=== PATIENT | male | born 1995 | race Caucasian/White ===

== ENCOUNTER 2018-05-28 06:53 | Inpatient (IN) | payer MEDICAID, OTHER ==
[2018-05-28 07:35] LABS: ADD MAN DIFF? NO
[2018-05-28 07:37] LABS: WHITE BLOOD COUNT 15.5 10^3/ul (4.8-10.8)
[2018-05-28 07:37] LABS: BASOPHIL # 0.1 10^3/ul (0.0-0.1); BASOPHILS % 0.6 % (0.0-2.0); EOSINOPHILS # 1.1 10^3/ul (0.0-0.5); EOSINOPHILS % 6.9 % (0.0-7.0); HEMATOCRIT 33.4 % (42.0-52.0); HEMOGLOBIN 10.1 g/dl (14.0-18.0); LYMPHOCYTES # 2.3 10^3/ul (0.8-2.9); LYMPHOCYTES % 14.7 % (18.0-55.0); MEAN CORPUSCULAR HEMOGLOBIN 28.5 pg (29.0-33.0); MEAN CORPUSCULAR HGB CONC 30.2 g/dl (32.0-37.0); MEAN CORPUSCULAR VOLUME 94.1 fl (72.0-104.0); MEAN PLATELET VOLUME 10.6 fl (7.4-10.4); MONOCYTES % 6.5 % (0.0-13.0); NEUTROPHIL # 10.9 10^3/ul (1.6-7.5); NEUTROPHILS % 70.5 % (30.0-74.0); PLATELET COUNT 644 10^3/UL (140-415); RED BLOOD COUNT 3.55 10^6/ul (4.70-6.10); RED CELL DISTRIBUTION WIDTH 14.4 % (11.5-14.5)
[2018-05-28] MEDS: ACETAMINOPHEN 325 MG SUPP PR (07:50)
[2018-05-28] MEDS: SODIUM CHLORIDE 0.9% 500 ML BAG IV* (07:51)
[2018-05-28 07:57] LABS: ALANINE AMINOTRANSFERASE 55 IU/L (13-69); ALBUMIN 4.6 g/dl (3.3-4.9); ALBUMIN/GLOBULIN RATIO 1.15; ALKALINE PHOSPHATASE 163 IU/L (42-121); ANION GAP 16 (5-13); BILIRUBIN,INDIRECT 0.3 mg/dl (0-1.1); BILIRUBIN,TOTAL 0.3 mg/dl (0.2-1.3); BLOOD UREA NITROGEN 18 mg/dl (7-20); CALCIUM 10.5 mg/dl (8.4-10.2); CARBON DIOXIDE 27 mmol/L (21-31); CHLORIDE 105 mmol/L (97-110); CREATININE 0.21 mg/dl (0.61-1.24); Estimated GFR > 60 mL/min (>60); GLUCOSE 173 mg/dl (70-220); POTASSIUM 4.6 mmol/L (3.5-5.1); SODIUM 148 mmol/L (135-144); TOTAL PROTEIN 8.6 g/dl (6.1-8.1)
[2018-05-28 07:58] LABS: ASPARTATE AMINO TRANSFERASE 84 IU/L (15-46)
[2018-05-28 08:10] LABS: AADO2 Arterial 126.5 mmHg (7.0-24.0); Allen Test ACCEPTAB; Arterial Base Excess 1.4 mmol/L (-3.0-3); Arterial Blood Gas Oxygen Sat 93.6 mmHG (95.0-98.0); Arterial COHb 0.6 % (0.0-3.0); Arterial Fraction of Oxyhgb 92.8 % (93.0-99.0); Arterial HCO3 26.7 mmol/L (22.0-26.0); Arterial MetHb 0.3 % (0.0-1.5); Arterial pCO2 45.1 mmhg (35-45); MODE VENT - PC; Site Right Radial
[2018-05-28 08:25] LABS: LACTIC ACID 2.4 mmol/L (0.5-2.0)
[2018-05-28] MEDS: SODIUM CHLORIDE 0.9% 1L BAG IV* (09:24)
[2018-05-28] MEDS: CEFEPIME 2GM/50 ML (PMX) 50 ML IVPB (09:24)
[2018-05-28 09:29] LABS: ADD UMIC YES; UR ASCORBIC ACID 40 mg/dL (NEGATIVE); UR BACTERIA FEW /HPF (NONE SEEN); UR BILIRUBIN (Dip) NEGATIVE (NEGATIVE); UR BLOOD (Dip) NEGATIVE (NEGATIVE); UR CALCIUM OXALATE CRYSTAL FEW /HPF (NONE SEEN); UR CLARITY CLOUDY (CLEAR); UR COLOR YELLOW (YELLOW); UR GLUCOSE (Dip) NEGATIVE (NEGATIVE); UR KETONES (Dip) NEGATIVE (NEGATIVE); UR LEUKOCYTE ESTERASE (Dip) TRACE Leu/ul (NEGATIVE); UR MUCUS MODERATE /HPF (NONE SEEN); UR NITRITE (Dip) NEGATIVE (NEGATIVE); UR RBC 111 /HPF (0-5); UR SPECIFIC GRAVITY (Dip) 1.027 (1.003-1.030); UR TOTAL PROTEIN (Dip) 2+ mg/dl (NEGATIVE); UR UROBILINOGEN (Dip) NEGATIVE (NEGATIVE); UR WBC 93 /HPF (0-5)
[2018-05-28] MEDS: VANCOMYCIN 1 GM (PMX) 250 ML IVPB (09:52)
[2018-05-28 09:53] LABS: LACTIC ACID 2.4 mmol/L (0.5-2.0)
[2018-05-28] MEDS: LIDOCAINE 1% (MPF) 5 ML VIAL SC (11:30)
[2018-05-28] MEDS ORDERED: SOD CHLORIDE 0.9% 1,000 ML IV (11:32)
[2018-05-28 11:48] LABS: LACTIC ACID 2.4 mmol/L (0.5-2.0)
[2018-05-28] MEDS ORDERED: ACETAMINOPHEN 325 MG TAB PO (12:00)
[2018-05-28] MEDS ORDERED: ONDANSETRON 4 MG INJ IV ×2 (12:00→14:30)
[2018-05-28] MEDS ORDERED: NACL 0.9% 3 ML SYG IV (14:30)
[2018-05-28] MEDS ORDERED: VANCOMYCIN IV PER PHARMACY XX (15:00)
[2018-05-28] MEDS ORDERED: BACLOFEN 10 MG TAB GTB (15:30)
[2018-05-28] MEDS ORDERED: LEVALBUTEROL (NEB) 0.31 MG/3 ML AMP NEB (15:30)
[2018-05-28] MEDS ORDERED: ACETAMINOPHEN 160 MG/5ML CUP PO (15:30)
[2018-05-28] MEDS ORDERED: DEXTROSE 50% 50 ML SYRINGE IV ×2 (16:00)
[2018-05-28] MEDS ORDERED: GLUCOSE GEL 15 GRAM TUBE PO ×2 (16:00)
[2018-05-28] MEDS ORDERED: GLUCAGON 1 MG INJ IM (16:00)
[2018-05-28] MEDS ORDERED: GLUCOSE GEL 15 GRAM TUBE BUCCAL (16:00)
[2018-05-28] MEDS ORDERED: GENTAMICIN IV PER PHARMACY XX (17:00)
[2018-05-28] MEDS: INSULIN ASPART [NOVOLOG] 3 ML PEN SC ×2 (18:00→20:27)
[2018-05-28] MEDS: VANCOMYCIN 750 MG (PMX) 250 ML IVPB (18:52)
[2018-05-28] MEDS: SPIRONOLACTONE 25 MG TAB GTB (19:39)
[2018-05-28] MEDS: MONTELUKAST 10 MG TAB GTB (20:03)
[2018-05-28] MEDS: LEVETIRACETAM (100 MG/ML) 5ML CUP GTB (20:03)
[2018-05-28] MEDS: METOPROLOL 25 MG TAB GTB (20:03)
[2018-05-28] MEDS: TOPIRAMATE SPRINKLE 25 MG CAP GTB (20:03)
[2018-05-28] MEDS: HEPARIN 5,000 UNIT/1 ML VIAL SC (20:25)
[2018-05-28] MEDS: GENTAMICIN 80 MG/NS (PMX) 50 ML IVPB (20:27)
[2018-05-28] MEDS ORDERED: TRIMETHOPRIM/SULFAMETHOX (PO SYG) GTB (21:00)
[2018-05-28] MEDS ORDERED: CEFEPIME 1GM/50 ML (PMX) 50 ML IVPB (21:00)
[2018-05-29] MEDS: ACCU-CHEK XX (01:01)
[2018-05-29] MEDS: VANCOMYCIN 750 MG (PMX) 250 ML IVPB ×3 (01:11→17:20)
[2018-05-29] MEDS: SPIRONOLACTONE 25 MG TAB GTB ×2 (05:09→17:07)
[2018-05-29] MEDS: GENTAMICIN 80 MG/NS (PMX) 50 ML IVPB ×2 (05:14→18:00)
[2018-05-29 07:02] LABS: ALANINE AMINOTRANSFERASE 43 IU/L (13-69); ALBUMIN 3.6 g/dl (3.3-4.9); ALBUMIN/GLOBULIN RATIO 1.24; ALKALINE PHOSPHATASE 99 IU/L (42-121); ANION GAP 13 (5-13); ASPARTATE AMINO TRANSFERASE 78 IU/L (15-46); BILIRUBIN,INDIRECT 0.2 mg/dl (0-1.1); BILIRUBIN,TOTAL 0.2 mg/dl (0.2-1.3); BLOOD UREA NITROGEN 10 mg/dl (7-20); CALCIUM 9.2 mg/dl (8.4-10.2); CARBON DIOXIDE 23 mmol/L (21-31); CHLORIDE 112 mmol/L (97-110); CREATININE 0.17 mg/dl (0.61-1.24); Estimated GFR > 60 mL/min (>60); GLUCOSE 120 mg/dl (70-220); MAGNESIUM 1.9 mg/dl (1.7-2.5); PHOSPHORUS 3.4 mg/dl (2.5-4.9); POTASSIUM 3.8 mmol/L (3.5-5.1); SODIUM 148 mmol/L (135-144); TOTAL PROTEIN 6.5 g/dl (6.1-8.1)
[2018-05-29 08:00] LABS: HEMOGLOBIN A1C 5.3 % (0-5.9)
[2018-05-29] MEDS: INSULIN ASPART [NOVOLOG] 3 ML PEN SC ×4 (08:00→21:00)
[2018-05-29 08:39] LABS: AADO2 Arterial 41.4 mmHg (7.0-24.0); Allen Test ACCEPTAB; Arterial Base Excess 1.3 mmol/L (-3.0-3); Arterial Blood Gas Oxygen Sat 98.1 mmHG (95.0-98.0); Arterial COHb 0.3 % (0.0-3.0); Arterial Fraction of Oxyhgb 97.2 % (93.0-99.0); Arterial HCO3 26.2 mmol/L (22.0-26.0); Arterial MetHb 0.6 % (0.0-1.5); Arterial pCO2 42.9 mmhg (35-45); MODE VENT - AC; Site Right Radial
[2018-05-29 08:41] LABS: WHITE BLOOD COUNT 10.5 10^3/ul (4.8-10.8)
[2018-05-29 08:41] LABS: HEMATOCRIT 27.4 % (42.0-52.0); HEMOGLOBIN 8.5 g/dl (14.0-18.0); MEAN CORPUSCULAR HEMOGLOBIN 29.6 pg (29.0-33.0); MEAN CORPUSCULAR VOLUME 95.5 fl (72.0-104.0); MEAN PLATELET VOLUME 11.8 fl (7.4-10.4); PLATELET COUNT 523 10^3/UL (140-415); POSITIVE DIFF @See below; RED BLOOD COUNT 2.87 10^6/ul (4.70-6.10); RED CELL DISTRIBUTION WIDTH 14.6 % (11.5-14.5)
[2018-05-29 08:45] LABS: ADD MAN DIFF? YES
[2018-05-29] MEDS: TOPIRAMATE SPRINKLE 25 MG CAP GTB ×2 (09:00→21:19)
[2018-05-29] MEDS: LEVETIRACETAM (100 MG/ML) 5ML CUP GTB ×2 (09:00→21:19)
[2018-05-29] MEDS: MAGNESIUM HYDROXIDE 30ML CUP PO (09:00)
[2018-05-29] MEDS: CITRIC ACID/SODIUM CITRATE 15 ML CUP GTB (09:00)
[2018-05-29] MEDS: POLYETHYLENE GLYCOL 17 GM PACKET GTB (09:00)
[2018-05-29] MEDS ORDERED: CITRIC ACID/NA CIT (1 MEQ/ML POSYG) GTB (09:00)
[2018-05-29] MEDS: METOPROLOL 25 MG TAB GTB ×2 (09:00→21:20)
[2018-05-29 09:45] LABS: ANISOCYTOSIS 2+ (0-0); BAND NEUTROPHILS #M 0.1 10^3/ul (0.0-0.6); BAND NEUTROPHILS % (M) 1 % (0-10); EOSINOPHILS % (M) 13 % (0-7); LYMPHOCYTES #M 2.9 10^3/ul (0.8-2.9); LYMPHOCYTES % (M) 28 % (18-55); MONOCYTE #M 0.5 10^3/ul (0.3-0.9); MONOCYTES % (M) 5 % (0-13); PLATELET ESTIMATE INCREASED; POLYCHROMASIA 3+ (0-0); REACTIVE LYMPHOCYTES #M 0.1 10^3/ul (0.0-0.0); REACTIVE LYMPHOCYTES% (M) 1 % (0-0); SEG NEUT #M 5.5 10^3/ul (1.6-7.5); SEGMENTED NEUTROPHILS (M) % 52 % (30-74); SMUDGE%M 27 % (0-0)
[2018-05-29] MEDS: SOD CHLORIDE 0.45% 1,000 ML IV (09:53)
[2018-05-29 09:57] LABS: VANCOMYCIN,TROUGH 13.6 ug/ml (10.0-20.0)
[2018-05-29] MEDS: INSULIN GLARGINE [LANTus] (100 UNITS/ML) SYG SC (09:59)
[2018-05-29] MEDS: HEPARIN 5,000 UNIT/1 ML VIAL SC ×2 (10:00→21:24)
[2018-05-29] MEDS: INFLUENZA VIRUS VACCINE 0.5 ML (DISPENSING) IM* (17:22)
[2018-05-29] MEDS ORDERED: ACETAMINOPHEN 650MG/20.3ML CUP PO (17:30)
[2018-05-29 17:47] LABS: GENTAMICIN,TROUGH < 0.6 ug/ml (1.0-2.0)
[2018-05-29] MEDS: MONTELUKAST 10 MG TAB GTB (21:19)
[2018-05-30] MEDS: VANCOMYCIN 750 MG (PMX) 250 ML IVPB ×2 (01:43→10:28)
[2018-05-30] MEDS: SOD CHLORIDE 0.45% 1,000 ML IV ×3 (01:52→22:03)
[2018-05-30] MEDS: ACCU-CHEK XX (01:53)
[2018-05-30 05:32] LABS: AADO2 Arterial 65.1 mmHg (7.0-24.0); Allen Test ACCEPTAB; Arterial Base Excess 2.4 mmol/L (-3.0-3); Arterial Blood Gas Oxygen Sat 96.9 mmHG (95.0-98.0); Arterial Fraction of Oxyhgb 95.6 % (93.0-99.0); Arterial HCO3 27.8 mmol/L (22.0-26.0); Arterial MetHb 0.3 % (0.0-1.5); Arterial pCO2 45.9 mmhg (35-45); MODE VENT - PC; Site Right Radial
[2018-05-30 05:37] LABS: ADD MAN DIFF? NO
[2018-05-30 05:38] LABS: BASOPHIL # 0.1 10^3/ul (0.0-0.1); BASOPHILS % 0.6 % (0.0-2.0); EOSINOPHILS # 0.9 10^3/ul (0.0-0.5); EOSINOPHILS % 9.7 % (0.0-7.0); HEMATOCRIT 28.5 % (42.0-52.0); HEMOGLOBIN 8.7 g/dl (14.0-18.0); LYMPHOCYTES # 2.2 10^3/ul (0.8-2.9); LYMPHOCYTES % 24.8 % (18.0-55.0); MEAN CORPUSCULAR HEMOGLOBIN 28.1 pg (29.0-33.0); MEAN CORPUSCULAR HGB CONC 30.5 g/dl (32.0-37.0); MEAN CORPUSCULAR VOLUME 91.9 fl (72.0-104.0); MEAN PLATELET VOLUME 10.4 fl (7.4-10.4); MONOCYTE # 0.6 10^3/ul (0.3-0.9); MONOCYTES % 6.3 % (0.0-13.0); NEUTROPHIL # 5.2 10^3/ul (1.6-7.5); NEUTROPHILS % 57.9 % (30.0-74.0); PLATELET COUNT 447 10^3/UL (140-415); RED CELL DISTRIBUTION WIDTH 14.2 % (11.5-14.5)
[2018-05-30 06:23] LABS: LACTIC ACID 0.8 mmol/L (0.5-2.0)
[2018-05-30] MEDS: GENTAMICIN 80 MG/NS (PMX) 50 ML IVPB ×2 (06:26→17:28)
[2018-05-30] MEDS: SPIRONOLACTONE 25 MG TAB GTB ×2 (06:26→17:27)
[2018-05-30 06:31] LABS: ANION GAP 10 (5-13); BLOOD UREA NITROGEN 7 mg/dl (7-20); CALCIUM 9.3 mg/dl (8.4-10.2); CARBON DIOXIDE 26 mmol/L (21-31); CHLORIDE 108 mmol/L (97-110); CREATININE 0.17 mg/dl (0.61-1.24); Estimated GFR > 60 mL/min (>60); GLUCOSE 114 mg/dl (70-220); SODIUM 144 mmol/L (135-144)
[2018-05-30 07:03] LABS: POTASSIUM 2.5 mmol/L (3.5-5.1)
[2018-05-30] MEDS ORDERED: POTASSIUM CHLORIDE (SR) 10 MEQ TAB PO (07:30)
[2018-05-30] MEDS: INSULIN ASPART [NOVOLOG] 3 ML PEN SC ×4 (08:00→21:00)
[2018-05-30] MEDS: INSULIN GLARGINE [LANTus] (100 UNITS/ML) SYG SC (08:28)
[2018-05-30] MEDS ORDERED: POTASSIUM CHLORIDE 20 MEQ POWDER FOR ORAL SOLN GTB (08:30)
[2018-05-30] MEDS: MAGNESIUM HYDROXIDE 30ML CUP PO (09:08)
[2018-05-30] MEDS: POLYETHYLENE GLYCOL 17 GM PACKET GTB (09:08)
[2018-05-30] MEDS: TOPIRAMATE SPRINKLE 25 MG CAP GTB ×2 (09:09→21:40)
[2018-05-30] MEDS: LEVETIRACETAM (100 MG/ML) 5ML CUP GTB ×2 (09:09→21:40)
[2018-05-30] MEDS: POTASSIUM CHLORIDE 20 MEQ POWDER FOR ORAL SOLN GTB (09:11)
[2018-05-30] MEDS: HEPARIN 5,000 UNIT/1 ML VIAL SC ×2 (09:22→21:42)
[2018-05-30] MEDS: CITRIC ACID/SODIUM CITRATE 15 ML CUP GTB (09:23)
[2018-05-30] MEDS: METOPROLOL 25 MG TAB GTB ×2 (10:10→22:02)
[2018-05-30] MEDS: POTASSIUM CHLORIDE 100 ML IVPB ×2 (10:48→13:19)
[2018-05-30] MEDS: MEROPENEM 1 GM/50ML(PMX) 50 ML IVPB (21:39)
[2018-05-30] MEDS: MONTELUKAST 10 MG TAB GTB (21:40)
[2018-05-30] MEDS: FAMOTIDINE 20 MG INJ IV (21:40)
[2018-05-31] MEDS: ACCU-CHEK XX (02:00)
[2018-05-31] MEDS: MEROPENEM 1 GM/50ML(PMX) 50 ML IVPB ×2 (06:20→13:58)
[2018-05-31] MEDS: SPIRONOLACTONE 25 MG TAB GTB (06:20)
[2018-05-31 06:21] LABS: WHITE BLOOD COUNT 8.1 10^3/ul (4.8-10.8)
[2018-05-31 06:21] LABS: ADD MAN DIFF? NO; BASOPHIL # 0.1 10^3/ul (0.0-0.1); BASOPHILS % 0.6 % (0.0-2.0); EOSINOPHILS # 0.9 10^3/ul (0.0-0.5); EOSINOPHILS % 11.6 % (0.0-7.0); HEMOGLOBIN 8.8 g/dl (14.0-18.0); LYMPHOCYTES # 2.5 10^3/ul (0.8-2.9); MEAN CORPUSCULAR HEMOGLOBIN 27.9 pg (29.0-33.0); MEAN CORPUSCULAR HGB CONC 30.3 g/dl (32.0-37.0); MEAN CORPUSCULAR VOLUME 92.1 fl (72.0-104.0); MEAN PLATELET VOLUME 10.7 fl (7.4-10.4); MONOCYTE # 0.6 10^3/ul (0.3-0.9); MONOCYTES % 6.9 % (0.0-13.0); NEUTROPHIL # 3.9 10^3/ul (1.6-7.5); NEUTROPHILS % 48.3 % (30.0-74.0); PLATELET COUNT 443 10^3/UL (140-415); RED BLOOD COUNT 3.15 10^6/ul (4.70-6.10); RED CELL DISTRIBUTION WIDTH 14.3 % (11.5-14.5)
[2018-05-31 07:19] LABS: ANION GAP 13 (5-13); BLOOD UREA NITROGEN 6 mg/dl (7-20); CALCIUM 9.5 mg/dl (8.4-10.2); CARBON DIOXIDE 23 mmol/L (21-31); CHLORIDE 105 mmol/L (97-110); Estimated GFR > 60 mL/min (>60); GLUCOSE 111 mg/dl (70-220); POTASSIUM 3.5 mmol/L (3.5-5.1); SODIUM 141 mmol/L (135-144)
[2018-05-31 07:54] LABS: PHOSPHORUS 4.3 mg/dl (2.5-4.9)
[2018-05-31 07:54] LABS: MAGNESIUM 2.1 mg/dl (1.7-2.5)
[2018-05-31] MEDS: INSULIN ASPART [NOVOLOG] 3 ML PEN SC ×2 (08:00→11:56)
[2018-05-31] MEDS: INSULIN GLARGINE [LANTus] (100 UNITS/ML) SYG SC (08:28)
[2018-05-31] MEDS: CITRIC ACID/SODIUM CITRATE 15 ML CUP GTB (09:26)
[2018-05-31] MEDS: TOPIRAMATE SPRINKLE 25 MG CAP GTB (09:27)
[2018-05-31] MEDS: MAGNESIUM HYDROXIDE 30ML CUP PO (09:27)
[2018-05-31] MEDS: POLYETHYLENE GLYCOL 17 GM PACKET GTB (09:27)
[2018-05-31] MEDS: LEVETIRACETAM (100 MG/ML) 5ML CUP GTB (09:27)
[2018-05-31] MEDS: FAMOTIDINE 20 MG INJ IV (09:27)
[2018-05-31] MEDS: METOPROLOL 25 MG TAB GTB (09:27)
[2018-05-31] MEDS: HEPARIN 5,000 UNIT/1 ML VIAL SC (09:29)
[2018-05-31] MEDS: SOD CHLORIDE 0.45% 1,000 ML IV (14:20)
[2018-05-31] MEDS ORDERED: FAMOTIDINE 20 MG TAB PO (21:00)
== END 2018-05-31 16:59 | DRG 872 ==
LOC: E/R 06:53 → 6WM 11:32
PROC: 5A1945Z Respiratory Ventilation, 24-96 Consecutive Hours (ICD-10-PCS; principal; 2018-05-28)
DX: A41.9 Sepsis, unspecified organism (principal); N39.0 Urinary tract infection, site not specified; J96.10 Chronic respiratory failure, unspecified whether with hypoxia or hypercapnia; B96.4 Proteus (mirabilis) (morganii) as the cause of diseases classified elsewhere; G80.9 Cerebral palsy, unspecified; Z93.0 Tracheostomy status; B96.20 Unspecified Escherichia coli [E. coli] as the cause of diseases classified elsewhere; L89.611 Pressure ulcer of right heel, stage 1; R65.20 Severe sepsis without septic shock
CPT/HCPCS: 36415; 36600; 71045; 80048; 80053; 80170; 80202; 81001; 82803; 82962; 83036; 83605; 83735; 84100; 84443; 85025; 86756; 87040; 87070; 87081; 87086; 90686; 93005; 94002; 94003; 96374; 96375; 99285-25